=== PATIENT | female | born 1960 | race Two or more races ===

== ENCOUNTER 2020-05-03 06:50 | Day surgery (SDC) | payer OTHER ==
[~2020-05-03 06:50] MED LIST: ZETIA10 MG PO; ZOCOR20 MG PO
== END 2020-05-03 22:00 | disposition home or self-care (01) ==
LOC: CIR.AMB 06:50
PROVIDERS: ATTEND Surgery
DX: D05.12 Intraductal carcinoma in situ of left breast (principal); D24.1 Benign neoplasm of right breast